=== PATIENT | male | born 1985 | race Caucasian/White ===

== ENCOUNTER 2018-03-20 22:24 | Emergency (ER) | payer OTHER ==
[2018-03-20 22:29] VITALS: BP 123/71; PULSE 88; TEMP 98.1; BMI 25.7
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
== END 2018-03-20 23:30 | disposition home or self-care (01) ==
LOC: JERFT 22:24 → JER 22:24
DX: S80.211A Abrasion, right knee, initial encounter (principal); Y35.811A Legal intervention involving manhandling, law enforcement official injured, initial encounter; Y93.89 Activity, other specified; Y92.89 Other specified places as the place of occurrence of the external cause; Y99.0 Civilian activity done for income or pay
CPT/HCPCS: 99281-25

== ENCOUNTER 2018-07-11 16:19 | Emergency (ER) | payer OTHER ==
[2018-07-11 16:30] VITALS: BP 136/66; PULSE 76; TEMP 98.1; BMI 25.7
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
== END 2018-07-11 17:11 | disposition home or self-care (01) ==
LOC: JERFT 16:19
DX: S50.311A Abrasion of right elbow, initial encounter (principal); S60.511A Abrasion of right hand, initial encounter; S60.512A Abrasion of left hand, initial encounter; Y35.811A Legal intervention involving manhandling, law enforcement official injured, initial encounter; Y93.89 Activity, other specified; Y92.89 Other specified places as the place of occurrence of the external cause; Y99.0 Civilian activity done for income or pay
CPT/HCPCS: 99281-25

== ENCOUNTER 2018-07-24 17:32 | Emergency (ER) | payer OTHER ==
[2018-07-24 17:39] VITALS: BP 131/66; PULSE 68; TEMP 97.9; BMI 25.7
[2018-07-24] MEDS ORDERED: NAPROXEN 500 MG TABLET (FP) PO ONE (17:50)
[2018-07-24] MEDS ORDERED: NAPROXEN 500 MG TABLET (FP) ONE (17:51)
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
== END 2018-07-24 18:27 | disposition home or self-care (01) ==
LOC: JERFT 17:32
DX: M25.531 Pain in right wrist (principal); Y35.811A Legal intervention involving manhandling, law enforcement official injured, initial encounter; Y93.89 Activity, other specified; Y92.89 Other specified places as the place of occurrence of the external cause; Y99.0 Civilian activity done for income or pay
CPT/HCPCS: 73110-TC-RT-FY; 73130-TC-RT-FY; 99281-25

== ENCOUNTER 2021-09-22 19:37 | Emergency (ER) | payer BC, OTHER ==
[2021-09-22 19:45] VITALS: BP 131/78; PULSE 64; TEMP 98.8; BMI 25.7
== END 2021-09-22 20:12 | disposition home or self-care (01) ==
LOC: FER 19:37
DX: S80.01XA Contusion of right knee, initial encounter (principal); W19.XXXA Unspecified fall, initial encounter
CPT/HCPCS: 99282-25